=== PATIENT | female | born 1985 | race Caucasian/White ===

== ENCOUNTER 2018-04-11 23:54 | Observation (INO) ==
[2018-04-12] MEDS ORDERED: LORazepam 1 MG TABLET PO ONE (00:24)
[2018-04-12] MEDS ORDERED: LORazepam 1 MG TABLET ONE (00:27)
[2018-04-12 00:46] LABS: Hematocrit 34.6 % (37.0-47.0); Hemoglobin 11.6 gm/dL (12.5-16.0); Mean Cell Volume 83.4 fl (78-100); Mean Corpuscular Hgb Conc 33.5 g/dl (32-36); Mean Platelet Volume 10.9 fl (8-12.5); Neutrophil # 5.1 K/mm3 (1.3-6.0); Neutrophil % 51.3 % (42-75.0); Platelet Count 304 K/mm3 (150-450); Red Blood Count 4.15 M/mm3 (4.2-5.4); White Blood Count 9.9 K/mm3 (4.0-10.5)
[2018-04-12 00:56] LABS: Prothrombin Time (Patient) 10.4 Seconds (9.0-11.0)
[2018-04-12 00:57] LABS: INR 1.04 INR (0.90-1.10); Partial Thrombolplastin Time 26.4 Seconds (24-32)
[2018-04-12 01:07] LABS: ALT 24 U/L (19-67); AST 14 U/L (0-48); Alkaline Phosphatase * 88 U/L (50-170); Anion Gap 11.8 mmol/L (6.8-13.8); BUN/Creatinine Ratio 19.6 (9.0-21.6); Bilirubin, Total 0.2 mg/dL (0.0-1.1); Blood Urea Nitrogen 9 mg/dL (3-23); Ca. Corrected For Albumin 8.7 mg/dL (8.4-10.2); Calcium * 8.2 mg/dL (7.9-10.9); Carbon Dioxide 24.7 mmol/L (24-32.6); Chloride 106 mmol/L (97-106); Glucose * 91 mg/dL (70-110); Potassium 3.5 mmol/L (3.4-4.6); Sodium 139 mmol/L (132-142); T4 Free * 2.48 ng/dL (0.76-1.46); TSH * Less than 0.007 uIU/mL (0.358-3.74)
[2018-04-12 01:09] LABS: Troponin I Less than 0.017 ng/mL (0.00-0.10)
[2018-04-12 01:24] LABS: Urine Appearance Clear (CLEAR); Urine Bilirubin Negative (NEGATIVE); Urine Blood 5 /ul (NEGATIVE); Urine Color Yellow; Urine Ketone Negative (NEGATIVE)
[2018-04-12 01:25] LABS: Urine Bacteria TRACE; Urine Nitrite Negative (NEGATIVE); Urine Protein Negative (NEGATIVE); Urine RBC TRACE /hpf (0-5); Urine Specific Gravity >=1.030 SP.GR. (1.005-1.010); Urine Urobilinogen Normal (NORMAL); Urine WBC None Seen /hpf (0-5)
[2018-04-12 01:31] LABS: Cocaine Ur Negative (NEGATIVE); Urine Barbiturate Negative (NEGATIVE); Urine Benzodiazepines Negative (NEGATIVE); Urine Opiates Negative (NEGATIVE); Urine PCP Negative (NEGATIVE); Urine THC Negative (NEGATIVE)
[2018-04-12] MEDS ORDERED: PROPRANOLOL HCL 20 MG TABLET ONE (01:38)
[2018-04-12] MEDS ORDERED: METHIMAZOLE 10 MG TABLET ONE (01:39)
--- NOTE | 2018-04-12 01:54 | ERNOTE ---
Chest Pain/Cardiac HPI Date of Service: 04/12/18 Chief Complaint: Chest Pain Time Seen by Provider: 04/12/18 00:23 Source: patient, family Exam Limitations: no limitations Immunizations: IMMUNIZATION HX Immunizations Up to Date Yes History of Influenza Vaccine No Hx Pneumococcal Vaccination No Allergies/Adverse Reactions: Allergies No Known Allergies Allergy (Unverified 07/21/15 20:39) Narrative: patient has had past hx of graves disease, has been without meds for at least three years, developed symptoms over last several,days, tachycardia exopthalmous chest pain etc, amenorrhea Timing: constant, getting worse Severity/Quality: moderate, sharp, stabbing Location: central Chest Pain Radiation: arms, other - sharp pain in right arm Activities at Onset: emotional stress Modifying Factors - Improves: Present: rest Modifying Factors - Worsens: Present: movement Nitro Today/Relief: no nitro taken today Aspirin Treatment Today: no aspirin today Associated Symptoms: Present: headache, shortness of breath Prior Chest Pain/Cardiac Workup: Reports: no prior cardiac workup Prior Treatment: Reports: recently seen, treated by physician Review of Systems - Narrative Narrative: see chief complaint - Review of Systems Constitutional: Present: See HPI EYE: Present: blurred vision ENT: Present: no symptoms reported Respiratory: Present: shortness of breath Cardiology: Present: See HPI, chest pain Gastrointestinal/Abdominal: Present: no symptoms reported Genitourinary: Present: no symptoms reported Musculoskeletal: Present: muscle pain, muscle stiffness, other - sharp pain in right arm Skin: Present: dryness Neurological: Present: no symptoms reported Endocrine: Present: no symptoms reported Hematologic/Lymphatic: Present: no symptoms reported Psych: Present: no symptoms reported All Other Systems: All systems neg except as marked Medical History (Last Updated 04/12/18 @ 00:13 by Nicole Goddard RN) Graves disease Hyperthyroidism Hypoglycemia Family History: Family History (Last Updated 04/12/18 @ 00:14 by Nicole Goddard RN) Other Heart disease Social History: Preferred Language Georgian Do you have any rastafarian or No cultural preference? Smoking Status Light tobacco smoker Abuse History No History of abuse Psych History Hx of Depression Alcohol Use none Drug Use none Physical Exam - Physical Exam General Appearance: Present: mild distress, anxious Head Exam: Present: normal inspection, no evidence of injury Eye Exam: Other: bilateral - bilateral exopthalmous Ears, Nose, Throat: Present: normal ENT inspection Neck: Present: thyromegaly Respiratory: Present: no respiratory distress, normal breath sounds Cardiovascular/Chest: Present: regular rate, rhythm, no murmur, normal peripheral pulses Peripheral Pulses: N=norm/S=strong/W=weak/B=bound/A=absent: Carotid (R): Normal, Carotid (L): Normal, Radial (R): Normal, Radial (L): Normal Gastrointestinal/Abdominal: Present: normal bowel sounds, nontender, nondistended, soft, no organomegaly Back Exam: Present: normal inspection, normal range of motion, no CVA tenderness, no vertebral tenderness Extremity Exam: Present: other - dry thickened skin in lower extremities Skin Exam: Present: pallor Lymphatic Exam: Present: no adenopathy ED Progress - Date and Time Seen: Date and Time: 04/12/18 01:53 patient improved 04/12/18 02:44 patient started on tapizole and inderal, case discussed with dr emilie castillo ccepts patient for admission to observation - Results and Orders Patient's Lab Results:: I have reviewed the patient's lab results. - Vital Signs Patient's Vital Signs:: I have reviewed the patient's vital signs. Vital Signs: Vital Signs 04/12/18 00:04 04/12/18 00:20 04/12/18 00:42 Temperature 37.4 C Pulse Rate 110 H 108 H 101 H Respiratory Rate 22 H 18 Blood Pressure 157/86 H 147/93 H O2 Sat by Pulse Oximetry 98 98 04/12/18 00:55 04/12/18 01:29 Temperature Pulse Rate 100 101 H Respiratory Rate 18 18 Blood Pressure 142/78 H 159/82 H O2 Sat by Pulse Oximetry 98 98 - EKG EKG: supraventricular tachycardia - X-Ray X-Ray #1 X-Ray: chest - no acute process Interpretation: Interp. by me - Progress/Reassessment Chief Complaint: Chest Pain Progress:: Improved - Transfer of Care Expected Disposition: Admit Plan - Plan Plan: to be admitted Departure Clinical Impression: Thyrotoxicosis with crisis - Departure Disposition: Home self-care Condition: Fair Instructions: Exophthalmos, Hyperthyroidism
[2018-04-12] MEDS ORDERED: METHIMAZOLE 10 MG TABLET PO ONE ×2 (02:00→02:15)
[2018-04-12] MEDS ORDERED: PROPRANOLOL HCL 20 MG TABLET PO ONE (02:00)
[2018-04-12] MEDS ORDERED: NORMAL SALINE 1,000 ML IV PRN (02:49)
[2018-04-12] MEDS: METHIMAZOLE 10 MG TABLET PO SCH ×2 (08:02→13:53)
[2018-04-12] MEDS: PROPRANOLOL HCL 20 MG TABLET PO SCH ×2 (08:02→13:53)
--- NOTE | 2018-04-12 15:34 | HP ---
Chief Complaint - Chief Complaint Date of Service: 04/12/18 Time of Service: 12:00 Chief Complaint: Racing heart History of Present Illness: Kaitlyn is a 33 yo female with known history of hyperthyroidism. She reports previously being on propranolol and methimazole but got tired of taking medication and stopped these years ago. Since then she reports that she often has symptoms of hyperthyroid, but can ignore it. Over the last 48 hours she reports symptoms were much worse. She felt hot, she felt her heart racing, was lightheaded, and dizzy. She presented to the [facility] ER and was found to be tachycardic with hyperthyroidism. She was started on betablocker in the ER. Medical History (Last Updated 04/12/18 @ 03:38 by Xin Pickett RN) Anxiety and depression Borderline personality disorder Graves disease Hyperthyroidism Hypoglycemia Post traumatic stress disorder (PTSD) Surgical History: Surgical History (Last Updated 04/12/18 @ 03:38 by Xin Pickett RN) No history of previous surgery Family History: Family History (Last Updated 04/12/18 @ 03:40 by Xin Pickett RN) Grandmother Heart disease maternal Mother Cervical cancer Diabetes Social History: Patient Lives/Resources Home Utilized Occupation unemployed Preferred Language Serbian Do you have any buddhist or No cultural preference? Smoking Status Current some day smoker Have you smoked in the past 12 Yes months Abuse History No History of abuse Psych History Hx of Depression Alcohol Use none Drug Use none Review Of Systems (GEN) - Review of Systems Generalized/Overall Review: Present: Weakness, Diaphoresis, Fatigue. Absent: Chills, Fever EENTM: Present: No Symptoms Reported Respiratory: Present: Shortness of Breath. Absent: Cough, Wheezing Cardiac: Present: Palpitations. Absent: Chest Pain, Edema Abdominal: Present: Nausea. Absent: Vomiting, Constipation, Diarrhea Genitourinary: Present: No Symptoms Reported Musculoskeletal: Present: No Symptoms Reported Neurological: Present: No Symptoms Reported Skin: Present: No Symptoms Reported Immunizations: IMMUNIZATION HX Immunizations Up to Date Yes History of Influenza Vaccine No Hx Pneumococcal Vaccination No Allergies/Adverse Reactions: Allergies Allergy/AdvReac Type Severity Reaction Status Date / Time No Known Allergies Allergy Verified 04/12/18 03:35 Home Medications: HOME MEDICATIONS Methimazole [Tapazole] 5 mg PO TID #90 tablet 04/12/18 [Last Taken Unknown] Propranolol HCl 60 mg PO BID #60 tablet 04/12/18 [Last Taken Unknown] Exam - Exam Vital Signs: Vital Signs - Last Taken Temp 36.5 C 04/12/18 10:00 Pulse 81 04/12/18 13:53 Resp 20 04/12/18 10:00 BP 113/68 04/12/18 13:53 Pulse Ox 98 04/12/18 10:00 Constitutional: Present: Alert, Oriented x3 ENT Exam: Present: hearing grossly normal Eye Exam: bilateral eye: normal inspection Respiratory: Present: lungs clear, normal breath sounds Cardiovascular/Chest: Present: regular rate, rhythm, no murmur Abdomen: Present: Normal bowel sounds, soft, nontender, nondistended Skin Exam: Present: normal color, warm/dry, no cyanosis Diagnostic Studies: Abnormal Lab Results 04/12/18 04/12/18 04/12/18 Range/Units 00:43 00:43 00:43 RBC 4.15 L (4.2-5.4) M/mm3 Hgb 11.6 L (12.5-16.0) gm/dL Hct 34.6 L (37.0-47.0) % Monocytes % 12.1 H (0.0-9) % Monocytes # 1.2 H (0.0-1.0) k/mm3 Est GFR (Non-Af Amer) 167 H D (60-130) mL/min Albumin 3.0 L (3.4-5.0) gm/dl TSH Less than 0.007 L (0.358-3.74) uIU/mL Free T4 2.48 H (0.76-1.46) ng/dL Urine Blood 5 H (NEGATIVE) /ul Ur Epithelial Cells 5-10 H (0-5) /hpf Laboratory Results WBC 9.9 K/mm3 (4.0-10.5) 04/12/18 00:43 RBC 4.15 M/mm3 (4.2-5.4) L 04/12/18 00:43 Hgb 11.6 gm/dL (12.5-16.0) L 04/12/18 00:43 Hct 34.6 % (37.0-47.0) L 04/12/18 00:43 MCV 83.4 fl (78-100) 04/12/18 00:43 MCH 28.0 pg (27-31) 04/12/18 00:43 MCHC 33.5 g/dl (32-36) 04/12/18 00:43 RDW 13.0 % (11.5-14.0) 04/12/18 00:43 Plt Count 304 K/mm3 (150-450) 04/12/18 00:43 MPV 10.9 fl (8-12.5) 04/12/18 00:43 Immature Gran % (Auto) 0.20 % (0.001-0.429) 04/12/18 00:43 Immature Gran # (Auto) 0.02 K/mm3 (0.000-0.0310) 04/12/18 00:43 Neutrophils % 51.3 % (42-75.0) 04/12/18 00:43 Lymphocytes % 34.7 % (20-51) 04/12/18 00:43 Monocytes % 12.1 % (0.0-9) H 04/12/18 00:43 Eosinophils % 1.5 % (0.0-3.0) 04/12/18 00:43 Basophils % 0.2 % (0.0-1.0) 04/12/18 00:43 Nucleated RBC % 0.0 k/mm3 (0-1) 04/12/18 00:43 Neutrophils # 5.1 K/mm3 (1.3-6.0) 04/12/18 00:43 Lymphocytes # 3.44 k/mm3 (1.5-3.5) 04/12/18 00:43 Monocytes # 1.2 k/mm3 (0.0-1.0) H 04/12/18 00:43 Eosinophils # 0.2 k/mm3 (0.0-0.7) 04/12/18 00:43 Absolute Basophils 0.0 k/mm3 (0.0-0.1) 04/12/18 00:43 PT 10.4 Seconds (9.0-11.0) 04/12/18 00:43 INR (Anticoag Therapy) 1.04 INR (0.90-1.10) 04/12/18 00:43 PTT ([place]) 26.4 Seconds (24-32) 04/12/18 00:43 Sodium 139 mmol/L (132-142) 04/12/18 00:43 Plasma Sodium 139 mmol/L (130-142) 04/12/18 00:43 Potassium 3.5 mmol/L (3.4-4.6) 04/12/18 00:43 Chloride 106 mmol/L (97-106) 04/12/18 00:43 Carbon Dioxide 24.7 mmol/L (24-32.6) 04/12/18 00:43 Anion Gap 11.8 mmol/L (6.8-13.8) 04/12/18 00:43 BUN 9 mg/dL (3-23) 04/12/18 00:43 Creatinine 0.46 mg/dL (0.4-1.4) 04/12/18 00:43 Est GFR (Non-Af Amer) 167 mL/min (60-130) H D 04/12/18 00:43 BUN/Creatinine Ratio 19.6 (9.0-21.6) 04/12/18 00:43 Random Glucose 91 mg/dL (70-110) 04/12/18 00:43 Calcium 8.2 mg/dL (7.9-10.9) 04/12/18 00:43 Calcium Adj for Albumin 8.7 mg/dL (8.4-10.2) 04/12/18 00:43 Total Bilirubin 0.2 mg/dL (0.0-1.1) 04/12/18 00:43 AST 14 U/L (0-48) 04/12/18 00:43 ALT 24 U/L (19-67) 04/12/18 00:43 Alkaline Phosphatase 88 U/L (50-170) 04/12/18 00:43 Troponin I Less than 0.017 ng/mL (0.00-0.10) 04/12/18 02:01 Total Protein 7.0 gm/dL (6.2-8.2) 04/12/18 00:43 Albumin 3.0 gm/dl (3.4-5.0) L 04/12/18 00:43 TSH Less than 0.007 uIU/mL (0.358-3.74) L 04/12/18 00:43 Free T4 2.48 ng/dL (0.76-1.46) H 04/12/18 00:43 Urine Color Yellow 04/12/18 00:43 Urine Appearance Clear (CLEAR) 04/12/18 00:43 Urine pH 6.0 pH (5.0-7.0) 04/12/18 00:43 Ur Specific [place] >=1.030 SP.GR. (1.005-1.010) 04/12/18 00:43 Urine Protein Negative mg/dL (NEGATIVE) 04/12/18 00:43 Urine Glucose (UA) Negative mg/dL (NEGATIVE) 04/12/18 00:43 Urine Ketones Negative mg/dL (NEGATIVE) 04/12/18 00:43 Urine Blood 5 /ul (NEGATIVE) H 04/12/18 00:43 Urine Nitrate Negative (NEGATIVE) 04/12/18 00:43 Urine Bilirubin Negative mg/dl (NEGATIVE) 04/12/18 00:43 Urine Urobilinogen Normal EU/dl (NORMAL) 04/12/18 00:43 Ur Leukocyte Esterase Negative /ul (NEGATIVE) 04/12/18 00:43 Urine RBC Trace /hpf (0-5) 04/12/18 00:43 Urine WBC None seen /hpf (0-5) 04/12/18 00:43 Ur Epithelial Cells 5-10 /hpf (0-5) H 04/12/18 00:43 Urine Bacteria Trace (NONE) 04/12/18 00:43 Urine Culture Comments No culture indicated 04/12/18 00:43 Urine Opiates Screen Negative (NEGATIVE) 04/12/18 00:43 Barbiturate Screen Negative (NEGATIVE) 04/12/18 00:43 Ur Phencyclidine Scrn Negative (NEGATIVE) 04/12/18 00:43 Urine Amphetamine Negative (NEGATIVE) 04/12/18 00:43 U Benzodiazepines Scrn Negative (NEGATIVE) 18 00:43 Urine Cocaine Screen Negative (NEGATIVE) 04/12/18 00:43 Urine Marijuana (THC) Negative (NEGATIVE) 04/12/18 00:43 Maternal Serum HCG 0 mIU/mL (0-6) 04/12/18 00:43 Assessment/Plan - Assessment/Plan (1) Thyrotoxicosis with crisis Assessment: Kaitlyn is a 33 yo female with known history of hyperthyroidism off her medication. She is having signficant symptoms of hyperthyroidism and is no longer tolerating being off medication. Will restart betablocker and methimazole. Heart rate is already improved since being given beta hemanth in the ER. Will monitor and plan to discharge to home later if she continues to well. She is currently asymptomatic. Problem: Acute Qualifiers: Thyrotoxicosis type: unspecified thyrotoxicosis type Qualified Code(s): E05.91 - Thyrotoxicosis, unspecified with thyrotoxic crisis or storm
--- NOTE | 2018-04-12 15:52 | DS ---
(1) Thyrotoxicosis with crisis Problem: Acute Qualifiers: Thyrotoxicosis type: unspecified thyrotoxicosis type Qualified Code(s): E05.91 - Thyrotoxicosis, unspecified with thyrotoxic crisis or storm Description of Stay: Kaitlyn is a 33 yo female with history of Grave's disease. She has been off medication for the last three years and putting up with symptoms during that time until the symptoms became worse over the last 24 hours and she is tired of dealing with it. She has no evidence of thyroid storm. She was admitted on observation to see if we could control symptoms with oral medications. She was started on methimazole and propranolol. She felt better and did well through the day. She will be discharged to home on those medications and follow up with ENT. Procedures Performed: none Results and Findings: Lab Pending Results 04/12/18 00:43: WBC 9.9, RBC 4.15 L, Hgb 11.6 L, Hct 34.6 L, MCV 83.4, MCH 28.0, MCHC 33.5, RDW 13.0, Plt Count 304, MPV 10.9, Immature Gran % (Auto) 0.20, Immature Gran # (Auto) 0.02, Neutrophils % 51.3, Lymphocytes % 34.7, Monocytes % 12.1 H, Eosinophils % 1.5, Basophils % 0.2, Nucleated RBC % 0.0, Neutrophils # 5.1, Lymphocytes # 3.44, Monocytes # 1.2 H, Eosinophils # 0.2, Absolute Basophils 0.0 04/12/18 00:43: PT 10.4, INR (Anticoag Therapy) 1.04, PTT ([place]) 26.4 04/12/18 00:43: Sodium 139, Plasma Sodium 139, Potassium 3.5, Chloride 106, Carbon Dioxide 24.7, Anion Gap 11.8, BUN 9, Creatinine 0.46, Est GFR (Non-Af Amer) 167 H D, BUN/Creatinine Ratio 19.6, Random Glucose 91, Calcium 8.2, Calcium Adj for Albumin 8.7, Total Bilirubin 0.2, AST 14, ALT 24, Alkaline Phosphatase 88, Troponin I Less than 0.017, Total Protein 7.0, Albumin 3.0 L, TSH Less than 0.007 L, Free T4 2.48 H 04/12/18 00:43: Maternal Serum HCG 0 04/12/18 00:43: Urine Color Yellow, Urine Appearance Clear, Urine pH 6.0, Ur Specific [place] >=1.030, Urine Protein Negative, Urine Glucose (UA) Negative, Urine Ketones Negative, Urine Blood 5 H, Urine Nitrate Negative, Urine Bilirubin Negative, Urine Urobilinogen Normal, Ur Leukocyte Esterase Negative, Urine RBC Trace, Urine WBC None seen, Ur Epithelial Cells 5-10 H, Urine Bacteria Trace, Urine Culture Comments No culture indicated 04/12/18 00:43: Urine Opiates Screen Negative, Barbiturate Screen Negative, Ur Phencyclidine Scrn Negative, Urine Amphetamine Negative, U Benzodiazepines Scrn Negative, Urine Cocaine Screen Negative, Urine Marijuana (THC) Negative 04/12/18 02:01: Troponin I Less than 0.017 Discharge Location: Home Disposition: Home self-care Condition: Good Discharge Activity: Activity as tolerated Discharge Diet: General/regular food Referrals: Zbigniew Soria MD [[facility]] - (Next available) Problem Oriented Discharge Instructions to Patient/Family: Hyperthyroidism Prescriptions (Any new or edited meds): Methimazole [Tapazole] 5 mg PO TID #90 tablet Propranolol HCl 60 mg PO BID #60 tablet Complete Home Medications List: Complete Home Medication List: Methimazole [Tapazole] 5 mg PO TID #90 tablet 04/12/18 Propranolol HCl 60 mg PO BID #60 tablet 04/12/18
[2018-04-12 16:10] VITALS: BP 140/62
== END 2018-04-12 16:23 | disposition home or self-care (01) ==
LOC: MS 23:54 → ER 23:54 → MS 04-12 03:08
PROVIDERS: ADMIT Family Medicine; ATTEND Family Medicine
DX: I47.1 Supraventricular tachycardia; E05.01 Thyrotoxicosis with diffuse goiter with thyrotoxic crisis or storm; F17.210 Nicotine dependence, cigarettes, uncomplicated
CPT/HCPCS: 36415; 71020; 71046; 80053; 80307; 81001; 84439; 84443; 84480; 84484; 84702; 85025; 85610; 85730; 93005; 96360; 96361; 99285; G0378; G0479